=== PATIENT | female | born 1960 | race Caucasian/White ===

== ENCOUNTER → 2022-06-03 | Outpatient (CLI) | payer MEDICARE ==
--- NOTE | 2022-06-03 16:51 | MR ---
EXAMINATION TYPE: MR cspine/tspine/lspine wo/w DATE OF EXAM: 06/03/2022 4:00 PM CLINICAL INDICATION:Female, 61 years old with history of M32.9 C33 R25.1 C79.9 R41.82 R29.2 R13.10; B rain cancer, weakness, evaluating for metastatic disease. COMPARISON: TECHNIQUE: Multi planar, multi sequence imaging was performed utilizing: T1-weighted, T2-weighted, a nd turbo inversion recovery imaging of the cervical and lumbar spine. MR contrast: IV Contrast: 6 cc Gadavist, None. FINDINGS: CERVICAL: Alignment: The cervical vertebral bodies have preserved heights. Alignment is within normal limits gi je[facility] patient positioning. Bones: Osteophyte formation facet joint arthropathy. Lateral facets of C5 and C6 on the left are fuse d. Multilevel degenerative disc disease is noted and most pronounced at the C4-C7 vertebral levels. Cord: The spinal cord is unremarkable with regards to their signal intensity and morphology. Discs: Multilevel disc desiccation is present. C2-C3: No significant disc pathology. The spinal canal is patent. No neural foraminal stenosis. C3-C4: A disc osteophyte complex is present with moderate spinal canal stenosis. Bilateral facet and uncovertebral joint arthropathy are present with mild bilateral neural foraminal stenosis. C4-C5: A disc osteophyte complex is present with moderate spinal canal stenosis. Bilateral facet and uncovertebral joint arthropathy are present with moderate bilateral neural foraminal stenosis. C5-C6: No significant disc pathology. The spinal canal is patent. No neural foraminal stenosis. C6-C7: A disc osteophyte complex is present with mild spinal canal stenosis. Bilateral facet and unc overtebral joint arthropathy are present with moderate bilateral neural foraminal stenosis. C7-T1: No significant disc pathology. The spinal canal is patent. Bilateral facet and uncovertebral joint arthropathy are present with mild bilateral neural foraminal stenosis. THORACIC: No evidence significant spinal canal or neural foraminal stenosis. Spinal cord is within no rmal limits LUMBAR: Alignment: The lumbar vertebral bodies have preserved heights and alignment. Cord: The conus medullaris and the distal spinal cord appear unremarkable with regards to their signa l intensity and morphology. Bones/Discs: High T1/T2 signal probable meningioma. Mild multilevel disc degeneration with osteophyte s. This signal is maintained. L1-L2: No significant disc pathology. Spinal canal is patent. The neural foramen are patent. L2-L3: No significant disc pathology. Spinal canal is patent. Facet joint arthropathy with mild bilat eral neural foraminal stenosis. L3-L4: No significant disc pathology. Spinal canal is patent. Facet joint arthropathy with mild bilat eral neural foraminal stenosis. L4-L5: No significant disc pathology. Spinal canal is patent. Facet joint arthropathy with mild bilat eral neural foraminal stenosis. L5-S1: No significant disc pathology. Spinal canal is patent. Facet joint arthropathy with mild bilat eral neural foraminal stenosis. Other findings: CSF attenuating fluid within the posterior cranial fossa. The visualized ventricles a re enlarged as well. High T2 right renal cyst. Scattered clonic diverticula. Atherosclerosis of the a rterial vasculature. Scattered clonic diverticula. IMPRESSION: 1. No evidence for metastatic disease within the osseous structures. 2. No definitive evidence of disc herniation. 3. Moderate C3-C4 and C4-C5 spinal canal stenosis secondary to disc osteophyte complex's. 4. There is a large CSF attenuating fluid collection in the posterior cranial fossa as well as dilati on of the ventricular system. Further evaluation of the brain with MRI is recommended.
== END | disposition home or self-care (01) ==
LOC: RADMRIMAIN 13:18
PROVIDERS: ATTEND Psychiatry & Neurology Pain Medicine
DX: C33 Malignant neoplasm of trachea (principal); C79.9 Secondary malignant neoplasm of unspecified site; M48.02 Spinal stenosis, cervical region; M25.78 Osteophyte, vertebrae; R41.82 Altered mental status, unspecified; R25.1 Tremor, unspecified; M32.9 Systemic lupus erythematosus, unspecified; R29.2 Abnormal reflex; R13.10 Dysphagia, unspecified
CPT/HCPCS: 72156; 72157; 72158; A9585